=== PATIENT | female | born 1950 | race Caucasian/White ===

== ENCOUNTER 2023-12-14 05:35 | Inpatient (IN) ==
--- NOTE | 2023-11-28 13:25 | PAT Medication Instructions ---
Medication Instructions Date of Service November 28, 2023 Home Medications albuterol sulfate 90 mcg/actuation aerosol inhaler 1 inh inhalation QID PRN Wheezing aspirin-caffeine 500 mg-32.5 mg tablet (Ivy Back and Body) 3 tab PO DIRECTED PRN Pain atorvastatin 10 mg tablet 10 mg PO QAM budesonide-formoterol HFA 80 mcg-4.5 mcg/actuation aerosol inhaler 1 puff inhalation BID calcium carbonate 600 mg-vitamin D3 10 mcg (400 unit) tablet (Calcium 600 + D(3)) 1 tab PO QAM cholecalciferol (vitamin D3) 125 mcg (5,000 unit) tablet (Vitamin D3) 125 mcg PO QAM cyanocobalamin (vitamin B-12) 5,000 mcg capsule 5,000 mcg PO QAM gabapentin 100 mg capsule 100 mg PO BID hydrocodone 5 mg-acetaminophen 325 mg tablet 1 tab PO Q6H PRN Pain losartan 100 mg tablet 100 mg PO QAM meloxicam 15 mg tablet 15 mg PO QAM metoprolol tartrate 25 mg tablet 25 mg PO BID mirabegron 25 mg tablet,extended release 24 hr (Myrbetriq) 25 mg PO QAM trazodone 50 mg tablet 50 mg PO HS ASK your surgeon for instructions meloxicam 15 mg tablet 15 mg PO QAM ASK your prescriber and surgeon aspirin-caffeine 500 mg-32.5 mg tablet (Ivy Back and Body) 3 tab PO DIRECTED PRN Pain DO NOT take the morning of surgery calcium carbonate 600 mg-vitamin D3 10 mcg (400 unit) tablet (Calcium 600 + D(3)) 1 tab PO QAM cholecalciferol (vitamin D3) 125 mcg (5,000 unit) tablet (Vitamin D3) 125 mcg PO QAM cyanocobalamin (vitamin B-12) 5,000 mcg capsule 5,000 mcg PO QAM losartan 100 mg tablet 100 mg PO QAM mirabegron 25 mg tablet,extended release 24 hr (Myrbetriq) 25 mg PO QAM Take morning of surgery With a small sip of water, OTHERWISE NOTHING TO EAT OR DRINK AFTER MIDNIGHT: albuterol sulfate 90 mcg/actuation aerosol inhaler 1 inh inhalation QID PRN Wheezing (use if needed; please bring rescue inhaler with you to hospital day of surgery if possible) atorvastatin 10 mg tablet 10 mg PO QAM budesonide-formoterol HFA 80 mcg-4.5 mcg/actuation aerosol inhaler 1 puff inhalation BID gabapentin 100 mg capsule 100 mg PO BID hydrocodone 5 mg-acetaminophen 325 mg tablet 1 tab PO Q6H PRN Pain (if needed) metoprolol tartrate 25 mg tablet 25 mg PO BID Take evening before surgery albuterol sulfate 90 mcg/actuation aerosol inhaler 1 inh inhalation QID PRN Wheezing (if needed) budesonide-formoterol HFA 80 mcg-4.5 mcg/actuation aerosol inhaler 1 puff inh alation BID gabapentin 100 mg capsule 100 mg PO BID hydrocodone 5 mg-acetaminophen 325 mg tablet 1 tab PO Q6H PRN Pain (if needed) metoprolol tartrate 25 mg tablet 25 mg PO BID trazodone 50 mg tablet 50 mg PO HS Other Notes If you have any questions please call us at [phone] or [phone] or [phone] or [phone]
--- NOTE | 2023-12-05 13:37 | Anesthesiology Consultation ---
Date of Service December 05, 2023 Assessment & Plan (1) Encounter for pre-operative examination: - Infectious disease screening: Per assessment on 12/05/23: No known recent infectious disease contacts or current infectious disease symptoms. - Cardiology visit (09/16/23): "persistent Afib with a history of PVI ablation on 01/08/2022.. history of being on flecainide which was discontinued after her ablation due to no longer having AFib. Patient had refused anticoagulation secondary to history of epistaxis.. denies any cardiac issues." Continued on same regimen. 6 month f/u recommended. - PCP visit (12/01/23): "Patient undergoing a left sided SI joint fusion.. At this time patient is medically cleared for surgery. Patient has upcoming blood work through [facility] on Tuesday. If blood work is within normal limits, patient is cleared for surgery.. Her cardiac risk score is 0. [id number] score 2. DASI score 42.7. 7.99 METS.. Patient is in normal sinus rhythm today.. Patient is status post ablation. Is not on anticoagulation. Continue current management. > Preop labs done 12/05/23 were unremarkable. - Family history pseudocholinesterase deficiency: Family history of pseudocholinesterase deficiency (father). Patient never was personally tested or had personal issues with anesthesia. Case reviewed with Dr. Blunt. Special indicators/chart/OR flagged. Chart Review Chart Review: Acceptable Risk for Surgery and Patient seen in Pre Admission Testing Teaching & Discussion Pre-Anesthesia Teaching/Discussion Notes: Instructed NPO after midnight before surgery,except medications with 15 cc of water. Medication instructions provided according to the PAT guidelines. History Surgery Operation Date: 12/14/23 10:05 Proposed Procedures p Left Sacroiliac Joint Fusion - Stanton Peña DO Height/Weight Height: 5 ft 5 in Weight: 80.6 kg Allergies Allergy/AdvReac Type Severity Reaction Status Date / Time succinylcholine Allergy Unknown Family Verified 12/05/23 14:41 history pseudocholinesterase deficiency Medications Home Medications Medication Instructions Recorded Confirmed Last Taken albuterol sulfate 90 mcg/actuation 1 inh inhalation QID PRN Wheezing 11/28/23 11/28/23 Unknown aerosol inhaler aspirin-caffeine 500 mg-32.5 mg 3 tab PO DIRECTED PRN Pain 11/28/23 11/28/23 Unknown tablet (Ivy Back and Body) atorvastatin 10 mg tablet 10 mg PO QAM 11/28/23 11/28/23 Unknown budesonide-formoterol HFA 80 1 puff inhalation BID 11/28/23 11/28/23 Unknown mcg-4.5 mcg/actuation aerosol inhaler calcium carbonate 600 mg-vitamin 1 tab PO QAM 11/28/23 11/28/23 Unknown D3 10 mcg (400 unit) tablet (Calcium 600 + D(3)) cholecalciferol (vitamin D3) 125 125 mcg PO QAM 11/28/23 11/28/23 Unknown mcg (5,000 unit) tablet (Vitamin D3) cyanocobalamin (vitamin B-12) 5,000 mcg PO QAM 11/28/23 11/28/23 Unknown 5,000 mcg capsule gabapentin 100 mg capsule 100 mg PO BID 11/28/23 11/28/23 Unknown hydrocodone 5 mg-acetaminophen 325 1 tab PO Q6H PRN Pain 11/28/23 11/28/23 Unknown mg tablet losartan 100 mg tablet 100 mg PO QAM 11/28/23 11/28/23 Unknown meloxicam 15 mg tablet 15 mg PO QAM 11/28/23 11/28/23 Unknown metoprolol tartrate 25 mg tablet 25 mg PO BID 11/28/23 11/28/23 Unknown mirabegron 25 mg tablet,extended 25 mg PO QAM 11/28/23 11/28/23 Unknown release 24 hr (Myrbetriq) trazodone 50 mg tablet 50 mg PO HS 11/28/23 11/28/23 Unknown Past Medical History Medical History Asthma Atrial fibrillation s/p ablation (2021) Taking beta shani Patient states AC discontinued 2 years ago after ablation per patient request/choice (aware of risks)- cardio/PCP aware and following closely Chronic pain legs, reason for gabapentin per patient Family history of pseudocholinesterase deficiency Patient's father had reaction during a procedure- was hospitalized for a week and determined to be pseudocholinesterase deficiency. Patient never was personally tested or had personal issues with anesthesia. Hyperlipidemia Hypertension Osteoarthritis Urinary incontinence Exercise / Class Metabolic Activity III < 4 Walking/Shop/Light housework (one FS: No CP, occasional SOB) Past Family History Family History Father Diabetes Past Surgical History Surgical History History of Achilles tendon repair right History of cardiac radiofrequency ablation [address] [facility] History of carpal tunnel release R/L History of cataract surgery R/L History of hysterectomy History of incision and drainage right > s/p achilles repair, had to see wound clinic for a year, wound is now closed, but does open on occasion History of laminectomy lumbar History of tonsillectomy History of tooth extraction Hx of spinal surgery previous SI fusion Past Anesthesia History No Hx of Anesthesia Complications and Pseudocholinesterase Deficiency (Family history (father)) History of PONV No Hx of Motion Sickness and History of PONV (Single episode) Social History Smoking Status: Former smoker Do You Dip or Chew Tobacco: No Smoking End Date: Quit 2013 Hx Alcohol Use: Yes Alcohol type: beer and hard liquor alcohol intake frequency: a few times a month Hx Substance Use: No substance use type: does not use Review of Systems Patient denies chest pain, shortness of breath, fever, chills, cough, wheezing, palpitations. Physical Exam Vital Signs BP 169/84 P 69 TEMP 98.3 SP02 95%RA RESP 18 Physical Full cervical extension range of motion. Full TMJ range of motion. TMD 3 finger breaths Mallampati Score III Dentition: missing molars, + crowns Lungs: clear throughout to auscultation Cardiac: regular rate and rhythm, no murmurs noted Spine: normal Carotid arteries: negative bruit Extremities: no LE edema Lab Results Anesthesia Preop Results Results Anesthesia Widget: WBC 7.77 K/ul (4.8-10.8) 12/05/23 Hgb 12.9 g/dl (12.0-16.0) 12/05/23 Hct 40.6 % (37.0-47.0) 12/05/23 Plt 300 K/uL (130-400) 12/05/23 Na 138 mmol/L (136-145) 12/05/23 K 4.0 mmol/L (3.5-5.1) 12/05/23 Cl 103 mmol/L (98-107) 12/05/23 CO2 28 mmol/L (21-32) 12/05/23 BUN 16 mg/dl (6-23) 12/05/23 Creat 1.10 mg/dl (0.6-1.2) 12/05/23 Glucose Level 86 mg/dl (70-99(Fasting)) 12/05/23 PT 10.1 Seconds (9.0-12.0) 12/05/23 PTT 27 Seconds (21-31) 12/05/23 INR 0.9 (0.9-1.1) 12/05/23 Urine Color Yellow 12/05/23 Urine Appearance Clear (Clear) 12/05/23 Urine pH 6.5 (4.5-7.5) 12/05/23 Urine Specific [place] 1.015 (1.000-1.030) 12/05/23 Urine Protein Negative (Negative) 12/05/23 Urine Glucose (UA) Negative (Negative) 12/05/23 Urine Ketones Negative (Negative) 12/05/23 Urine Blood Negative (Negative) 12/05/23 Urine Nitrite Negative (Negative) 12/05/23 Urine Bilirubin Negative (Negative) 12/05/23 Urine Urobilinogen Negative (Negative) 12/05/23 Urine Leukocyte Esterase Negative (Negative) 12/05/23 Blood Type A Negative 12/05/23 Antibody Screen NEGATIVE 12/05/23 Testing Electrocardiogram Date: 05/10/23 SR with first degree AVB. 60bpm. Tracings interpretation difficult to read. Per cardiology visit 09/16/23, "EK05/10/2023: sinus rhythm. rate 60bpm." Chest X-Ray Date: 07/06/23 FINDINGS: PA and lateral chest radiographs are obtained. No prior studies are available for comparison at the time of dictation. The heart is mildly enlarged. The pulmonary vasculature is nondistended congested. There is mild bibasilar scarring/atelectasis. The lungs and pleural spaces are otherwise clear. There is no pneumothorax. The skeletal structures are osteopenic. The bony thorax appears intact. Degenerative change and mild scoliosis is noted in the spine. IMPRESSION: Mild cardiomegaly with no active disease in the chest. Echocardiogram Date: 05/31/23 LVEF 54%. Grade I DD. No RWMA. Mild cLVH. No significant valvular disease. Stress Test Date: 05/31/23 "Normal perfusion.. Low risk of future ischemic events" EF 48%. "Ejection fraction should be confirmed by an alternative imaging technique" [Echo done 05/31/23- EF 54%]
[2023-12-14] MEDS: GABAPENTIN 300 MG CAP PO SCH (06:01)
[2023-12-14] MEDS: ACETAMINOPHEN 500 MG TAB PO SCH (06:01)
[2023-12-14] MEDS: CeleBREX 200 MG CAP PO SCH (06:01)
[2023-12-14] MEDS: LR 15ML/HR IV SCH (06:02)
[2023-12-14] MEDS: LR 60ML/HR IV SCH (06:02)
[2023-12-14] MEDS ORDERED: ATROPINE SULFATE 0.1 MG/ML 10ML SYR IV PRN (06:26)
[2023-12-14] MEDS ORDERED: ONDANSETRON INJ 2 MG/ML 2 ML VIAL IV PRN ×2 (06:26→10:00)
[2023-12-14] MEDS ORDERED: ePHEDrine sulfate 50 MG/ML AMP IV PRN (06:26)
[2023-12-14] MEDS ORDERED: HYDROmorphone INJ 1 MG/ML SYRINGE IV PRN ×2 (06:26→10:00)
[2023-12-14] MEDS ORDERED: fentaNYL citrate PF 100 MCG/2 ML VIAL ONE (07:16)
[2023-12-14] MEDS ORDERED: DEXAMETHASONE SOD INJ 4 MG/ML VIAL ONE (07:17)
[2023-12-14] MEDS ORDERED: LIDOCAINE 2% 2 ML VIAL/AMP(20MG/ML) INFIL ONE (07:17)
[2023-12-14] MEDS ORDERED: PROPOFOL IV EMULSION 10 MG/ML 20 ML VIAL IV ONE (07:17)
[2023-12-14] MEDS ORDERED: GLYCOPYRROLATE 0.2 MG/ML VIAL ONE (07:17)
[2023-12-14] MEDS ORDERED: ROCURONIUM BROMIDE 10 MG/ML 5 ML VIAL IV ONE (07:17)
[2023-12-14] MEDS ORDERED: ONDANSETRON INJ 2 MG/ML 2 ML VIAL ONE (07:17)
--- NOTE | 2023-12-14 07:42 | History & Physical Bridge Note ---
Date of Service December 14, 2023 History & Physical Bridge Note I have examined the patient, reviewed the History & Physical and in the interval since the performance of the History & Physical I have noted the following changes of clinical significance: no changes noted
--- NOTE | 2023-12-14 07:43 | History & Physical Report ---
Date of Service December 14, 2023 Assessment & Plan (1) Sacroiliitis: Plan: Left sacroiliac joint fusion History of Present Illness Chief Complaint: Left sacroiliitis Primary Care Provider: Na Chen DO This is a 73-year-old female who presents with chronic persistent sacroiliitis. After failing course of nonoperative care she is here for surgical intervention. Allergies Allergy/AdvReac Type Severity Reaction Status Date / Time succinylcholine Allergy Unknown Family Verified 12/14/23 05:45 history pseudocholinesterase deficiency Home Medications Medication Instructions Recorded Confirmed Type albuterol sulfate 90 mcg/actuation 1 inh inhalation QID PRN Wheezing 11/28/23 12/14/23 History aerosol inhaler aspirin-caffeine 500 mg-32.5 mg 3 tab PO DIRECTED PRN Pain 11/28/23 12/14/23 History tablet (Ivy Back and Body) atorvastatin 10 mg tablet 10 mg PO QAM 11/28/23 12/14/23 History budesonide-formoterol HFA 80 1 puff inhalation BID 11/28/23 12/14/23 History mcg-4.5 mcg/actuation aerosol inhaler calcium carbonate 600 mg-vitamin 1 tab PO QAM 11/28/23 12/14/23 History D3 10 mcg (400 unit) tablet (Calcium 600 + D(3)) cholecalciferol (vitamin D3) 125 125 mcg PO QAM 11/28/23 12/14/23 History mcg (5,000 unit) tablet (Vitamin D3) cyanocobalamin (vitamin B-12) 5,000 mcg PO QAM 11/28/23 12/14/23 History 5,000 mcg capsule gabapentin 100 mg capsule 100 mg PO BID 11/28/23 12/14/23 History hydrocodone 5 mg-acetaminophen 325 1 tab PO Q6H PRN Pain 11/28/23 12/14/23 His tory mg tablet losartan 100 mg tablet 100 mg PO QAM 11/28/23 12/14/23 History meloxicam 15 mg tablet 15 mg PO QAM 11/28/23 12/14/23 History metoprolol tartrate 25 mg tablet 25 mg PO BID 11/28/23 12/14/23 History mirabegron 25 mg tablet,extended 25 mg PO QAM 11/28/23 12/14/23 History release 24 hr (Myrbetriq) trazodone 50 mg tablet 50 mg PO HS 11/28/23 12/14/23 History Past Med/Surg History Problem List (Updated 12/14/23 @ 07:42 by Stanton Peña DO) Sacroiliitis Encounter for pre-operative examination Medical History Asthma Atrial fibrillation s/p ablation (2021) Taking beta shani Patient states AC discontinued 2 years ago after ablation per patient request/choice (aware of risks)- cardio/PCP aware and following closely Chronic pain legs, reason for gabapentin per patient Family history of pseudocholinesterase deficiency Patient's father had reaction during a procedure- was hospitalized for a week and determined to be pseudocholinesterase deficiency. Patient never was personally tested or had personal issues with anesthesia. Hyperlipidemia Hypertension Osteoarthritis Urinary incontinence Surgical History History of Achilles tendon repair right History of cardiac radiofrequency ablation 2021 > [facility] History of carpal tunnel release R/L History of cataract surgery R/L History of hysterectomy History of incision and drainage right > s/p achilles repair, had to see wound clinic for a year, wound is now closed, but does open on occasion History of laminectomy lumbar History of tonsillectomy History of tooth extraction Hx of spinal surgery previous SI fusion Family History Father Diabetes Social History Smoking Status: Former smoker Smoking End Date: Quit 2013; Second Hand Exposure: No; Do You Dip or Chew Tobacco: No; Tobacco Cessation Education Requested by Patient: No Hx Alcohol Use: Yes Alcohol type: beer and hard liquor Hx Substance Use: No Preferred Language: Telugu Communication Ability: Effective Manager Nursing Required: No Beliefs That Will Affect Care: None Current Living Situation: Significant Other Other Information That Helps Us Care for You: No Feels Safe at Home: Yes Safety Concerns: Feels Safe At This Time Assistive Devices: Glasses Physical Exam Physical Exam: Patient is alert, oriented heart regular in rhythm Lungs clear Results & Data Results & Data Vital Signs (Past 12 Hours) Vital Signs Temp Pulse Resp BP Pulse Ox O2 Del Method 12/14/23 05:55 36.6 C 66 18 160/93 H 96 Room Air
[2023-12-14] MEDS: ceFAZolin 2000MG 2,000 MG/15 ML SYR IV SCH (07:53)
[2023-12-14] MEDS: BUPIVACAINE/EPINEPHRINE 0.25% 1:200,000 30 ML VIAL ONE (08:15)
[2023-12-14] MEDS: FLOSEAL HEMOSTATIC MATRIX 10ML TOP ONE (08:24)
[2023-12-14] MEDS ORDERED: SUGAMMADEX SODIUM 200 MG/2 ML VIAL IV ONE (08:27)
--- NOTE | 2023-12-14 08:33 | Operative Report ---
Post Operative Report Pre & Post Diagnosis Operation Date: 12/14/23 07:45 Pre-Op Diagnosis: Left Sacrolitis Post-Op Diagnosis: Left Sacrolitis I identified the patient and participated in the time-out.: Yes Procedure Operation Date: 12/14/23 07:45 Actual Procedures #1 open left SI joint fusion. #2 placement of Nevro one 9 mm implant filled with Oxyzyme bone graft into the left SI joint. Surgeon Stanton Peña, DO Can Dragger Manasa Taveras Estimated Blood Loss 10 Findings Consistent with Post-Op Diagnosis Specimens None Indications This is a 73-year-old female presents above-mentioned diagnosis of failed course of nonoperative care is here for surgical invention. Description of Procedure Patient was met with identified informed consent obtained. Patient was then taken to the operative suite underwent ablation placed in a prone position on the Herrera table chest pad and hip bolsters. All bony prominences were well- padded eyes inspected to ensure no external pressure placed upon the left upper buttock was then prepped and draped in normal sterile fashion. With the assi stance of fluoroscopy identified the posterior aspect of left SI joint. Sharp dissection was performed down to the posterior capsule left SI joint. Then open SI joint with by scalpel. Then placed a joint finder directly into the joint and verified position in AP and oblique lateral planes. Satisfied with positioning I then dilated the joint the second dilator and ultimately a working cannula directly into the joint. I then drilled out curetted out and rasped out the left SI joint to subcortical bleeding bone. Then placed a 9 mm Nevro 1 implant filled with os design bone graft directly the joint locking the ileum to the sacrum. Incision was then copiously irrigated and closed with subcutaneous Vicryl and 4 Monocryl for final skin closure. Steri-Strips sterile dressing placed. Patient waken taken to PACU in stable condition. Please note Manasa Taveras was present out the entire procedure involved patient positioning complex portions of the surgery and final skin closure. Im ordering 20 grams of Triple [employer] [place] Collagen Powder ([employer] [id number]) to treat an incision wound that was caused by a spine procedure. The incision is approximately 2 cm(W) x 4 cm(L) into the joint (D) in size and is a full thickness wound. Triple [employer] [place] collagen comes in 1 gram packets so 20 packets were ordered. Given the size of the wound, with light to moderate exudate I chose to order a 20 day supply. The patient will be provided instructions for proper application of the collagen wound kit. The patient will be asked to apply the collagen powder daily and then cover it with sterile dressings dispensed. Collagen was selected as I expect the collagen to attract monocytes and fibroblasts, act as a sacrificial substrate for MMPs, and ultimately proved a matrix for tissue and vessel growth. The collagen will act as a primary dressing in this scenario. It is medically necessary for proper healing of these wounds to improve bioavailability and contact with each wound surface, this is also to help prevent infection of wounds and promote healing ultimately leading to a better healing outcome and limit the risk of infection. I attest to the content of the Intraoperative Record and any orders documented therein. Any exceptions are noted below.
[2023-12-14] MEDS: fentaNYL citrate PF 100 MCG/2 ML VIAL IV PRN (08:56)
--- NOTE | 2023-12-14 09:34 | Anesthesiology Progress Note ---
Date of Service December 14, 2023 Anesthesia Post Procedure Vital Signs Vital Signs: Temp Pulse Pulse Resp BP Pulse Ox O2 Del Method 12/14/23 09:30 36.4 C L 62 15 126/56 L 100 Room Air 12/14/23 09:20 63 13 125/65 100 Oxymask 12/14/23 09:10 61 12 133/54 L 100 Oxymask 12/14/23 09:00 63 12 123/61 100 Oxymask 12/14/23 08:50 36.2 C L 67 12 136/81 100 Oxymask 12/14/23 05:55 36.6 C 66 18 160/93 H 96 Room Air O2 Flow Rate 12/14/23 09:30 0 12/14/23 09:20 4 12/14/23 09:10 4 12/14/23 09:00 8 12/14/23 08:50 8 12/14/23 05:55 Pain Intensity Left Lower Back: Pain Intensity: 4 Transfer of Care Handoff Completed per policy Notes Mental Status: alert / awake / arousable Patient Amnestic to Procedure: Yes Nausea / Vomiting: adequately controlled Pain: adequately controlled Airway Patency, RR, SpO2: stable & adequate BP & HR: stable & adequate Hydration State: stable & adequate Anesthetic Complications: no major complications apparent and Pt Satisfied with anesthetic care
[2023-12-14] MEDS ORDERED: oxyCODONE HCL IR 5 MG TAB (IMMEDIATE RELEASE) PO PRN (10:00)
[2023-12-14] MEDS ORDERED: ACETAMINOPHEN 500 MG TAB PO PRN (10:00)
[2023-12-14] MEDS ORDERED: NALOXONE HCL 0.4 MG/1 ML VIAL/CARP IV PRN (10:00)
[2023-12-14] MEDS ORDERED: traMADol HCL 50 MG TABLET PO PRN (10:00)
[2023-12-14] MEDS ORDERED: HYDROmorphone INJ 0.5 MG/0.5 ML SYR IV PRN (10:00)
[2023-12-14] MEDS ORDERED: ACETAMINOPHEN 1,000 MG/100 ML VIAL IV PRN (10:00)
[2023-12-14] MEDS ORDERED: ONDANSETRON 4 MG OD TAB PO PRN (10:00)
[2023-12-14] MEDS ORDERED: PROMETHAZINE 12.5 MG/50.5 ML BAG IV PRN (10:00)
[2023-12-14] MEDS ORDERED: METOCLOPRAMIDE HCL INJ 5 MG/ML 2 ML VIAL IV PRN (10:00)
[2023-12-14] MEDS: ceFAZolin 330 MG/ML 1 GM VIAL ONE (10:02)
[2023-12-14] MEDS: LACTATED RINGER'S 1,000 ML IV SCH (10:05)
[2023-12-14 10:15] VITALS: RESP 18
--- NOTE | 2023-12-14 11:07 | Fluoroscopy Report ---
INTRAOPERATIVE RADIOGRAPHS CLINICAL HISTORY: Left sacroiliac joint fusion. Fluoro time: 40 seconds Ka,r: 32.97 mGy FINDINGS: 2 spot fluoroscopic views of the left sacroiliac joint are presented. An implant is seen wi thin the left sacroiliac joint. The hardware appears intact. IMPRESSION: Intraoperative images from left sacroiliac joint fusion. Electronically signed by: Jorge Lyn M.D. 12/14/2023 11:05 AM
[2023-12-14 11:39] VITALS: BP 150/82; PULSE 66; TEMP 97.3; O2SAT 94
== END 2023-12-14 13:12 | disposition home health service (06) | DRG 460 ==
LOC: ASU 05:35 → 3E 09:53